=== PATIENT | male | born 1975 | race Caucasian/White ===

== ENCOUNTER 2021-11-12 17:46 | Emergency (ER) | payer MEDICAID ==
[~2021-11-12] VITALS: Ht 198.1 cm; Wt 95.3 kg
--- NOTE | 2021-11-12 18:00 | NUR ---
To ER bed 2, "Allergic Reaction/hives/rash x5H I deployed epipen but went to my thumb", patient had a drink last night with possible almond ingredients but not sure, aaox3, breathing even and non labored, connected to monitor
[2021-11-12] MEDS ORDERED: diphenhydrAMINE HCL 50 MG/ML VIAL ONE (18:23)
[2021-11-12] MEDS ORDERED: FAMOTIDINE/PF INJ 20 MG/2 ML VIAL IV ONE ×2 (18:23→18:30)
[2021-11-12] MEDS ORDERED: methylPREDNISolone SOD SUCC 125 MG/2ML VIAL ONE (18:23)
[2021-11-12] MEDS ORDERED: diphenhydrAMINE HCL 50 MG/ML VIAL IV ONE (18:30)
[2021-11-12] MEDS ORDERED: IV NS 0.9% 1,000 ML BAG IV ONE (18:30)
[2021-11-12] MEDS ORDERED: methylPREDNISolone SOD SUCC 125 MG/2ML VIAL IV ONE (18:30)
--- NOTE | 2021-11-12 19:06 | NUR ---
PATIENT FEELING BETTER, NO SOB, REQUESTED FOR MORE WARM BLANKETS, NS STILL GOING
--- NOTE | 2021-11-12 19:47 | NUR ---
PT IS RESTING COMFORTABLY IN BED, V/S ARE STABLE. PT DENIES ANY PAIN. EXPRESSED HE WOULD LIKE TO BE DISCHARGED, MADE AWARE
--- NOTE | 2021-11-12 19:47 | NUR ---
RECEIVED REPORT FROM DARIO STONE FOR JAQUELINE
[2021-11-12] MEDS ORDERED: EPIN0.3P3 IM (19:55)
[2021-11-12] MEDS ORDERED: FAMO-131 PO (19:55)
[2021-11-12] MEDS ORDERED: DIPH25CA83 PO (19:55)
[2021-11-12] MEDS ORDERED: PRED20TA PO (19:55)
--- NOTE | 2021-11-12 20:04 | NUR ---
Patient discharged to home in stable condition. Written and verbal after care instructions given. Patient verbalizes understanding of instruction.
[2021-11-12 20:13] VITALS: BP 117/71
== END 2021-11-12 20:13 | disposition home or self-care (01) ==
LOC: ER 17:50
DX: L50.0 Allergic urticaria (principal); Z91.018 Allergy to other foods; Z88.6 Allergy status to analgesic agent; Z88.5 Allergy status to narcotic agent
CPT/HCPCS: 96361; 96374; 96375; 99284; J1200; J2930; J3490; J7030